=== PATIENT | female | born 1970 | race Caucasian/White ===

== ENCOUNTER → 2023-04-08 | Day surgery (SDC) | payer BC | LOC: CSHMAMMO 07:33 | PROVIDERS: ATTEND Nurse Practitioner Family | DX: N60.22 Fibroadenosis of left breast (principal); N60.82 Other benign mammary dysplasias of left breast; N62 Hypertrophy of breast; R92.0 Mammographic microcalcification found on diagnostic imaging of breast | CPT/HCPCS: 19081; 76098; 88305 ==